=== PATIENT | female | born 1975 | race Caucasian/White ===

== ENCOUNTER 2025-03-20 14:00 | Outpatient (RCR) | payer MEDICAID, SELFPAY ==
[2025-03-13 13:42] VITALS: BP 131/83; PULSE 82; RESP 18; TEMP 36.4; BMI 22.6
--- NOTE | 2025-03-13 14:19 | PCM.WC.HP ---
History of Present Illness Date of Service: 03/13/25 Chief Complaint: R BKA site wound History of Wound: Tri Brennan is a 49 y/o female who presents today for evaluation and management of a R BKA site wound. She has medical history significant for HTN, HLD, s/p renal transplant (x4, reportedly), CAD s/p PCI on prasugrel + ASA, diabetes. Her anti-rejection medications for her renal transplant include Cellcept, prednisone, and another infusion medication that she receives every 28 days. 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 She presented to the ER (seems all [facility] [place] per referral documentation) with BKA site dehiscence on 02/03/25 after a fall onto her stump; she underwent operative debridement at that time followed by wound vac application. According to the patient, once she was home and C applying vac, it never maintained a good seal. She presented back to ER with BKA site infection 02/18/25 and underwent an additional debridement and was referred here for ongoing management at discharge on 02/25/25. She has been doing wet-to-dry dressings with saline since then. She is performing her own wound care, states she is managing this fine on her own. She reports she has a few days left on a course of Cipro + Linezolid, reports she had MRSA. She states that she does not have a stump protector. She states that she has a stump junior java developer. With her description, I cannot tell exactly what it is (knee immobilizer vs compression vs protector). Whatever she has, she got through [employer]. [facility] Home Medications ?Medication ?Instructions ?Recorded ?Last Taken ?Type amlodipine 5 mg tablet 5 mg PO BID 03/13/25 Unknown History aspirin 81 mg chewable tablet 1 tab PO DAILY 03/13/25 Unknown History belatacept 250 mg intravenous mg IV 03/13/25 Unknown History solution (Nulojix) blood sugar diagnostic (True 03/13/25 Unknown History Metrix Glucose Test Strip) ciprofloxacin HCl 500 mg tablet 500 mg PO BID 03/13/25 Unknown History furosemide 20 mg tablet 20 mg PO DAILY PRN swelling 03/13/25 Unknown History gabapentin 100 mg capsule 200 mg PO TID 03/13/25 Unknown History insulin glargine 100 unit/mL (3 unit subcut 03/13/25 Unknown History mL) subcutaneous pen (Lantus Solostar U-100 Insulin) isosorbide mononitrate 30 mg 30 mg PO DAILY 03/13/25 Unknown History tablet,extended release 24 hr lancets 33 gauge (TRUEplus Lancets) 03/13/25 Unknown History linezolid 600 mg tablet 600 mg PO BID 03/13/25 Unknown History methocarbamol 500 mg tablet 500 mg PO TID 03/13/25 Unknown History metoprolol succinate 25 mg 25 mg PO QHS 03/13/25 Unknown History tablet,extended release 24 hr metoprolol succinate 50 mg 150 mg PO DAILY 03/13/25 Unknown History tablet,extended release 24 hr mycophenolate mofetil 250 mg 250 mg PO BID 03/13/25 Unknown History capsule nitrofurantoin 1 cap PO DAILY 03/13/25 Unknown History monohydrate/macrocrystals 100 mg capsule oxycodone 15 mg tablet 15 mg PO Q4H PRN PRN chronic pain 03/13/25 Unknown History polyethylene glycol 3350 17 17 PO DAILY 03/13/25 Unknown History gram/dose oral powder prednisone 5 mg tablet 5 mg PO 03/13/25 Unknown History spironolactone 25 mg tablet 25 mg PO BID 03/13/25 Unknown History Allergy/AdvReac Type Severity Reaction Status Date / Time Opioids - Morphine Analogues Allergy behavor Verified 03/13/25 13:40 Serotonin 5HT-3 Antagonists Allergy Other Verified 03/13/25 13:40 vancomycin Allergy Rash Verified 03/13/25 13:40 Social History Smoking Status: Never smoker Vital Signs Vital Signs Vital Signs: 03/13/25 13:42 Temperature 97.5 F L Temperature Source Temporal Pulse Rate 82 Respiratory Rate 18 Blood Pressure 131/83 H Blood Pressure Mean 99 Blood Pressure Source Monitor Blood Pressure Position Sitting Blood Pressure Location Left Arm Oxygen Delivery Method Room Air Weight Weight: 116 lb Body Mass Index (BMI) 22.6 Physical Exam Const alert, oriented x3, no apparent distress and average body habitus General Appearance: cooperative and comfortable HEENT normocephalic, head/scalp atraumatic, hearing grossly normal bilaterally and external ears normal Nose: external nose normal External Ear: external ears normal Teeth and Gingiva: poor dentition Eyes General Eye: normal appearance of both eyes Resp normal respiratory effort, normal air movement, no retractions and no use of accessory muscles Effort and Inspection: able to speak in complete sentences Extremity Extremity Narrative: RLE with BKA, wound as described below. LLE with TMA vs lisfranc amputation Bilat upper extremities with multiple partially amputated fingers bilaterally Skin Wounds: wounds noted Wound Narrative: R BKA stump dehiscence; no visible bone, exposed muscle flap. The wound base is largely granular, pink, bleeds well with debridement. There are no apparent tunnels. There is no significant drainage or foul odor. There is no surrounding erythema or excess warmth. Neuro oriented x3 and moves all extremities Speech: speech normal Psych cooperative Attitude: engaged Activity / Motor Behavior: appropriate eye contact Speech: normal speech Debridement Note Debridement Note Wound debrided: R BKA stump Laterality: Right Wound Grade/Stage: to the depth of muscle Depth: to muscle Percentage of wound debrided: 100 Instrument Used: 7mm curette Tissue Removed: bioburden/slough, nonviable tissue Severity: Fat Layer Exposed (muscle exposed without necrosis) Amount of bleeding with debridement: Mild Bleeding Controlled with: Pressure Patient tolerated procedure: Patient tolerated procedure well Post-Debridement Measurements and Additional Note: Post-Debridement Measurements/Treatment - Nurse 1 - General Ulcer Assessment Start: 03/13/25 13:33 Freq: Status: Active Protocol: DORIS Activity Type Activity Date Activity User E-sign Co-sign Detail Recorded Client Recorded Date Recorded By Document 03/13/25 13:42 [email or web address] [id number] 03/13/25 13:48 KW 03/13/25 13:42 - Today's Visit Information Type of service Initial Visit Arrival Mode Wheelchair Patient Identification Verified (Name & Yes ) Height and Weight Height 5 ft Weight 116 lb Weight in Pounds 116.0 lbs Weight Measurement Method Estimated by Patient Body Mass Index (BMI) 22.6 BMI Classification Normal Vital Signs Temperature (97.8 F-99.1 F) 97.5 F L Temperature Source Temporal Pulse Rate (60-100) 82 Pulse Location Monitor Respiratory Rate (12-18) 18 Respiratory rate source Observation Oxygen Delivery Method Room Air Blood Pressure (90/60-120/80) 131/83 H Blood Pressure Mean 99 Source Monitor Position Sitting Blood Pressure Location Left Arm History Since Last Visit- (Skip if this is Patient's initial visit) Left Footwear No Footwear Right Footwear No Footwear Pain Scale: 0-10 Numeric Is Patient Pain Free? No rt stump -Description Sharp,Burning -Alleviating Factors/Interventions Medication, Medicate when due Communication Assessment Preferred language Portuguese Executive Steward Required No Able to Read Yes Able to Write Yes Communication Tools None Caregiver Communication Skills No Impairment Impairment Right Hearing Abillity Normal Left Hearing Abillity Normal Visual Assistive Devices Glasses Teaching Assessment Preferences Verbal,Written, Demonstration Barriers to Learning None Readiness To Learn Excellent Willingness to Engage in Self Management High Activies Readiness to Engage in Self Management High Activities Anxiety Level Calm Cooperation Cooperative Perception Coherent Interest in Health Problem Asks Questions Education Importance Acknowledges Need Does Patient Smoke tobacco or other No substances Smoking Status Never smoker Is Patient Diabetic Yes Functional Assessment Recent Decline in Ability to Perform Denies Any Declines Culture/Episcopalian/Senior Front End Developer Cultural/Episcopalian Needs that may affect No Treatment Plan Would you allow our [facility] to No meet you for the purpose of spiritual/ emotional support? Senior Front End Developer to contact place of religion No WC - Nurse 1 - General Ulcer Measurement Start: 03/13/25 13:33 Freq: Status: Active Protocol: Activity Type Activity Date Activity User E-sign Co-sign Detail Recorded Client Recorded Date Recorded By Document 03/13/25 13:42 [id number] 03/13/25 13:48 KW 03/13/25 13:42 Wound Center Nurse 1 #1 RT STUMP -Current Size (cm) - Length 8.3 -Current Size (cm) - Width 13.5 -Current Size (cm) - Depth 0.2 -Total Square Cm 112.05 -Date of Last Picture (Recall this 03/13/25 field) -Exudate Amt Large -Exudate Type Serosanguineous -Wound Margin Distinct, Outline Attached -Granulation Amt Large (67-100%) -Granulation Quality Red -Texture (Tabitha-wound Skin Appearance) Assessed -Moisture (Tabitha-wound Skin Appearance) Assessed -Color (Tabitha-wound Skin Appearance) Assessed -Temperature (Tabitha-wound Skin No Abnormality Appearance) (Pt Warm) -Tenderness on Palpation (Tabitha-wound No Skin Appearance) -Ulcer Cleansing Soap and Water -Foul Odor after Cleansing No -Anesthetic Used 4% Lidocaine Solution WC - Nurse 2 - General Ulcer CM Notes Start: 03/13/25 13:33 Freq: Status: Active Protocol: Activity Type Activity Date Activity User E-sign Co-sign Detail Recorded Client Recorded Date Recorded By Document 03/13/25 13:59 [id number] 03/13/25 14:12 03/13/25 13:59 Wound Center Nurse 2 -Time 14:00 -Correct Patient Yes -Correct Side, Site, Position Yes -Correct Procedure Yes -Procedure Performed Yes -Type of Procedure Debridement -Clinical Debridement Muscle / Fascia -Tissue Removed Muscle -Post Debridement (cm) - Length 8.7 -Post Debridement (cm) - Width 13.5 -Post Debridement (cm) - Depth 0.9 -Total Square (Post) (cm) 117.45 -Area of Debridement (cm) - Length 8.7 -Area of Debridement (cm) - Width 13.5 -Total Square (Area) (cm) 117.45 -Tunneling No -Undermining/Tunneling No -Circular Undermining No -Wound/Ulcer Outcome Not Healed -Ulcer Cleansing Rinsed/ Irrigated with Saline -Foul Odor after Cleansing No -Bioengineered Tissue No -Bleeding Controlled with Pressure -Treatment Response Procedure Tolerated Well -Offloading No -Debridement - Muscle / Fascia, 1st Yes 20sq cm -Debridement, Muscle/Fascia, ea addt'l 5 20sq cm or part thereof Pain Scale: 0-10 Numeric Is Patient Pain Free? Yes Charges/Coding Visit Charges Office Visits / Consults: 44655 OV L3 New 30min Procedures Integumentary 111xxx-113xx: [id number] Ara musc/fascia 20 sq cm/< (total area: 117.45 sqcm) Add On Codes: 31414 Ara musc/fascia add-on (total area debrided 117.45 sqcm) Assessment/Plan Assessment/Plan (1) Dehiscence of amputation stump: CODE(S): T87.81 - Dehiscence of amputation stump PLAN: Dehiscence of R BK amputation stump with associated wound (2) Below-knee amputation of right lower extremity: CODE(S): S88.111A - Complete traumatic amputation at level between knee and ankle, right lower leg, initial encounter (3) Diabetes: CODE(S): E11.9 - Type 2 diabetes mellitus without complications (4) Immunosuppressed status: CODE(S): D84.9 - Immunodeficiency, unspecified PLAN: Plan She has large open wound of the R BKA site secondary to dehiscence. There are no signs of infection on exam today. The wound has exposed muscle with good granulation tissue throughout the base, there is no exposed bone. For wound care: (1) Wash the area with soap and water, pat to dry (2) Apply dakins-soaked gauze to the wound bed for wet-to-dry dressing (3) wrap with Kerlix (4) wrap with LATOYA for compression (5) change daily If she does not have one, I think it would be very beneficial for her to have a stump protector to reduce risk for further injury to the area particularly as she is residing at home. I will contact Kp to coordinate. Plan for return to the office in 1 week, sooner as needed.
--- NOTE | 2025-03-14 12:22 | WC ---
PHOTO 03/13/25 RIGHT STUMP
[2025-03-20 14:53] VITALS: BP 141/74; PULSE 87; RESP 18; TEMP 36.1; BMI 22.6
--- NOTE | 2025-03-20 15:18 | PCM.WC.PN ---
History of Present Illness Date of Service: 03/20/25 Chief Complaint: R BKA site wound History of Wound: Tri Brennan is a 49 y/o female who presents today for evaluation and management of a R BKA site wound. She has medical history significant for HTN, HLD, s/p renal transplant (x4, reportedly), CAD s/p PCI on prasugrel + ASA, diabetes. Her anti-rejection medications for her renal transplant include Cellcept, prednisone, and another infusion medication that she receives every 28 days. 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 She presented to the ER (seems all [facility] [place] per referral documentation) with BKA site dehiscence on 02/03/25 after a fall onto her stump; she underwent operative debridement at that time followed by wound vac application. According to the patient, once she was home and C applying vac, it never maintained a good seal. She presented back to ER with BKA site infection 02/18/25 and underwent an additional debridement and was referred here for ongoing management at discharge on 02/25/25. She has been doing wet-to-dry dressings with saline since then. She is performing her own wound care, states she is managing this fine on her own. She reports she has a few days left on a course of Cipro + Linezolid, reports she had MRSA. She states that she does not have a stump protector. She states that she has a stump anodizer. With her description, I cannot tell exactly what it is (knee immobilizer vs compression vs protector). Whatever she has, she got through [employer]. Subjective Subjective She has done well with wound care this past week, appears to be adhering to our wound care instructions. She feels she has noticed significant improvement in wound size. She has not had any increased erythema, swelling, drainage, foul odor, or pain. She denies constitutional symptoms. She did not receive the ordered supplies, apparently there was an issue with a misprint of one of her insurance numbers; she states she is supposed to receive then early next week. Objective Data Objective Data Vital Signs: Vital Signs Temp Pulse Resp BP O2 Del Method 97 F L 87 18 141/74 H Room Air 03/20/25 14:53 03/20/25 14:53 03/20/25 14:53 03/20/25 14:53 03/13/25 13:42 Oxygen Delivery Method Room Air Weight: 116 lb Body Mass Index (BMI) 22.6 Charges/Coding Visit Charges Office Visits / Consults: 02575 OV L3 New 30min Physical Exam Const alert, oriented x3, no apparent distress and average body habitus General Appearance: cooperative and comfortable HEENT normocephalic, head/scalp atraumatic, hearing grossly normal bilaterally and external ears normal Nose: external nose normal External Ear: external ears normal Teeth and Gingiva: poor dentition Eyes General Eye: normal appearance of both eyes Resp normal respiratory effort, normal air movement, no retractions and no use of accessory muscles Effort and Inspection: able to speak in complete sentences Extremity Extremity Narrative: RLE with BKA, wound as described below. LLE with TMA vs lisfranc amputation Bilat upper extremities with multiple partially amputated fingers bilaterally Skin Wounds: wounds noted Wound Narrative: R BKA stump dehiscence; no visible bone, exposed muscle flap. The wound base this week is beefy red without any significant slough or devitalized tissue. There are no apparent tunnels. There is no significant drainage or foul odor. There is no surrounding erythema or excess warmth. Neuro oriented x3 and moves all extremities Speech: speech normal Psych cooperative Attitude: engaged Activity / Motor Behavior: appropriate eye contact Speech: normal speech Debridement Note Debridement Note No debridement was completed: No debridement was completed today Post-Debridement Measurements and Additional Note: Post-Debridement Measurements/Treatment - Nurse 1 - General Ulcer Assessment Start: 03/13/25 13:33 Freq: Status: Active Protocol: RANDELL.HILTON Activity Type Activity Date Activity User E-sign Co-sign Detail Recorded Client Recorded Date Recorded By Document 03/13/25 13:42 KW [id number] 03/13/25 13:48 KW Document 03/20/25 14:53 AL [id number] 03/20/25 14:59 AL 03/13/25 03/20/25 13:42 14:53 - Today's Visit Information Type of service Initial Visit Follow-up Visit (Physician/CUSTODIAL WORKER ) Arrival Mode Wheelchair Ambulatory, Wheelchair Accompanied by self Patient Identification Verified (Name & Yes Yes ) Safety Precautions Fall Prevention Height and Weight Height 5 ft Weight 116 lb Weight in Pounds 116.0 lbs Weight Measurement Method Estimated by Patient Body Mass Index (BMI) 22.6 22.6 BMI Classification Normal Normal Vital Signs Temperature (97.8 F-99.1 F) 97.5 F L 97 F L Temperature Source Temporal Temporal Pulse Rate (60-100) 82 87 Pulse Location Monitor Monitor Respiratory Rate (12-18) 18 18 Respiratory rate source Observation Observation Oxygen Delivery Method Room Air Blood Pressure (90/60-120/80) 131/83 H 141/74 H Blood Pressure Mean (mm Hg) 99 96 Source Monitor Monitor Position Sitting Sitting Blood Pressure Location Left Arm Left Arm History Since Last Visit- (Skip if this is Patient's initial visit) Has dressing in place as prescribed Yes Has compression in place as prescribed Yes Has offloadiing in place as prescribed Yes Experienced any changes in pain level or Yes management Left Footwear No Footwear Regular Shoe Right Footwear No Footwear Regular Shoe Pain Scale: 0-10 Numeric Is Patient Pain Free? No Yes rt stump -Description Sharp,Burning -Alleviating Factors/Interventions Medication, Medicate when due Communication Assessment Preferred language Maltese Confectionery Maker Required No Able to Read Yes Able to Write Yes Communication Tools None Caregiver Communication Skills No Impairment Impairment Right Hearing Abillity Normal Left Hearing Abillity Normal Visual Assistive Devices Glasses Teaching Assessment Preferences Verbal,Written, Demonstration Barriers to Learning None Readiness To Learn Excellent Willingness to Engage in Self Management High Activies Readiness to Engage in Self Management High Activities Anxiety Level Calm Cooperation Cooperative Perception Coherent Interest in Health Problem Asks Questions Education Importance Acknowledges Need Does Patient Smoke tobacco or other No substances Smoking Status Never smoker Is Patient Diabetic Yes Functional Assessment Recent Decline in Ability to Perform Denies Any Declines Culture/Mandaeism/E Merchant Cultural/Mandaeism Needs that may affect No Treatment Plan Would you allow our hospital litigation attorney associate to No meet you for the purpose of spiritual/ emotional support? E Merchant to contact place of adventism No WC - Nurse 1 - General Ulcer Measurement Start: 03/13/25 13:33 Freq: Status: Active Protocol: Activity Type Activity Date Activity User E-sign Co-sign Detail Recorded Client Recorded Date Recorded By Document 03/13/25 13:42 KW [id number] 03/13/25 13:48 KW Document 03/20/25 14:53 MT [id number] 03/20/25 14:59 MT 03/13/25 03/20/25 13:42 14:53 Wound Center Nurse 1 #1 RT STUMP -Current Size (cm) - Length 8.3 7 -Current Size (cm) - Width 13.5 10.5 -Current Size (cm) - Depth 0.2 0.2 -Total Square Cm 112.05 73.5 -Date of Last Picture (Recall this 03/13/25 field) -Photo Taken No -Tunneling No -Undermining/Tunneling No -Circular Undermining No -Exudate Amt Large Medium -Exudate Type Serosanguineous Serosanguineous -Wound Margin Distinct, Flat & Intact Outline Attached -Granulation Amt Large (67-100%) Large (67-100%) -Granulation Quality Red Red -Slough/Fibrin No -Necrosis Amt None Present (0 %) -Texture (Tabitha-wound Skin Appearance) Assessed Assessed -Moisture (Tabitha-wound Skin Appearance) Assessed Assessed, Maceration -Color (Tabitha-wound Skin Appearance) Assessed Assessed, Erythema -Temperature (Tabitha-wound Skin No Abnormality No Abnormality Appearance) (Pt Warm) (Pt Warm) -Tenderness on Palpation (Tabitha-wound No No Skin Appearance) -Ulcer Cleansing Soap and Water Soap and Water -Foul Odor after Cleansing No No -Anesthetic Used 4% Lidocaine 4% Lidocaine Solution Solution Lower Limb Edema Present NA - Nurse 2 - General Ulcer CM Notes Start: 03/13/25 13:33 Freq: Status: Active Protocol: Activity Type Activity Date Activity User E-sign Co-sign Detail Recorded Client Recorded Date Recorded By Document 03/13/25 13:59 [id number] 03/13/25 14:12 Document 03/20/25 15:11 [id number] 03/20/25 15:13 03/13/25 03/20/25 13:59 15:11 Wound Center Nurse 2 #1 RT STUMP -Time 14:00 15:11 -Correct Patient Yes Yes -Correct Side, Site, Position Yes Yes -Correct Procedure Yes No -Procedure Performed Yes No -Type of Procedure Debridement -Clinical Debridement Muscle / Fascia -Tissue Removed Muscle -Post Debridement (cm) - Length 8.7 7.2 -Post Debridement (cm) - Width 13.5 10.5 -Post Debridement (cm) - Depth 0.9 0.5 -Total Square (Post) (cm) 117.45 75.60 -Area of Debridement (cm) - Length 8.7 -Area of Debridement (cm) - Width 13.5 -Total Square (Area) (cm) 117.45 -Tunneling No No -Undermining/Tunneling No No -Circular Undermining No No -Wound/Ulcer Outcome Not Healed Not Healed -Ulcer Cleansing Rinsed/ Irrigated with Saline -Foul Odor after Cleansing No No -Bioengineered Tissue No No -Bleeding Controlled with Pressure NA -Treatment Response Procedure Tolerated Well -Offloading No No -Debridement - Muscle / Fascia, 1st Yes 20sq cm -Debridement, Muscle/Fascia, ea addt'l 5 20sq cm or part thereof Pain Scale: 0-10 Numeric Is Patient Pain Free? Yes Yes Assessment/Plan Assessment/Plan (1) Dehiscence of amputation stump: CODE(S): T87.81 - Dehiscence of amputation stump PLAN: Dehiscence of R BK amputation stump with associated wound (2) Below-knee amputation of right lower extremity: CODE(S): S88.111A - Complete traumatic amputation at level between knee and ankle, right lower leg, initial encounter (3) Diabetes: CODE(S): E11.9 - Type 2 diabetes mellitus without complications (4) Immunosuppressed status: CODE(S): D84.9 - Immunodeficiency, unspecified PLAN: Plan She has large open wound of the R BKA site secondary to dehiscence. There are no signs of infection on exam today. The wound has exposed muscle with beefy red granulation tissue throughout the base, there is no exposed bone. There was no significant slough or devitalized tissue so did not perform any debridement today. For wound care: (1) Wash the area with soap and water, pat to dry (2) Apply dakins-soaked gauze to the wound bed for wet-to-dry dressing (3) wrap with Kerlix (4) wrap with LATOYA for compression (5) change daily Will continue with LATOYA wrap for compression. I will follow-up on my email with Kp regarding getting stump shrinkers for her, I have not heard back and she has not heard from them either. Plan for return to the office in 1 week, sooner as needed.
== END 2025-03-22 23:59 | disposition home or self-care (01) ==
LOC: WC 14:00
PROVIDERS: Visit Provider Physician Assistant
DX: T87.81 Dehiscence of amputation stump (principal); S88.111A Complete traumatic amputation at level between knee and ankle, right lower leg, initial encounter; Z89.511 Acquired absence of right leg below knee; E11.9 Type 2 diabetes mellitus without complications; Z79.4 Long term (current) use of insulin; E78.5 Hyperlipidemia, unspecified; Z79.891 Long term (current) use of opiate analgesic; Z79.82 Long term (current) use of aspirin; I10 Essential (primary) hypertension; I25.10 Atherosclerotic heart disease of native coronary artery without angina pectoris; D84.9 Immunodeficiency, unspecified; Z94.0 Kidney transplant status; Z95.5 Presence of coronary angioplasty implant and graft
CPT/HCPCS: 11043; 11046; 99203; 99213; G0463

== ENCOUNTER 2025-04-03 15:00 | Outpatient (RCR) | payer MEDICAID, SELFPAY ==
[2025-03-23 00:23] VITALS: BP 141/74; PULSE 87; RESP 18; TEMP 36.1; BMI 22.6
[2025-03-27 15:12] VITALS: BP 140/67; PULSE 94; RESP 18; TEMP 36.7; BMI 22.6
--- NOTE | 2025-03-27 16:23 | PCM.WC.PN ---
History of Present Illness Date of Service: 03/27/25 Chief Complaint: R BKA site wound History of Wound: Tri Brennan is a 49 y/o female who presents today for evaluation and management of a R BKA site wound. She has medical history significant for HTN, HLD, s/p renal transplant (x4, reportedly), CAD s/p PCI on prasugrel + ASA, diabetes. Her anti-rejection medications for her renal transplant include Cellcept, prednisone, and another infusion medication that she receives every 28 days. 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 She presented to the ER (seems all [facility] per referral documentation) with BKA site dehiscence on 02/03/25 after a fall onto her stump; she underwent operative debridement at that time followed by wound vac application. According to the patient, once she was home and HHC applying vac, it never maintained a good seal. She presented back to ER with BKA site infection 02/18/25 and underwent an additional debridement and was referred here for ongoing management at discharge on 02/25/25. She has been doing wet-to-dry dressings with saline since then. She is performing her own wound care, states she is managing this fine on her own. She reports she has a few days left on a course of Cipro + Linezolid, reports she had MRSA. She states that she does not have a stump protector. She states that she has a stump tack maker. With her description, I cannot tell exactly what it is (knee immobilizer vs compression vs protector). Whatever she has, she got through [employer]. Subjective Subjective She has done well with wound care this past week, appears to be adhering to our wound care instructions. She feels she has noticed significant improvement in wound size. She has not had any increased erythema, swelling, drainage, foul odor, or pain. She denies constitutional symptoms. She did receive the supplies that were ordered. Objective Data Objective Data Vital Signs: Vital Signs Temp Pulse Resp BP O2 Del Method 98.1 F 94 18 140/67 H Room Air 03/27/25 15:12 03/27/25 15:12 03/27/25 15:12 03/27/25 15:12 03/27/25 15:12 Oxygen Delivery Method Room Air Weight: 116 lb Body Mass Index (BMI) 22.6 Charges/Coding Procedures Integumentary 111xxx-113xx: 43276 Ara musc/fascia 20 sq cm/< (total area: 64 sq cm) Add On Codes: 84814 Ara musc/fascia add-on (total area debrided 64sqcm) Physical Exam Const alert, oriented x3, no apparent distress and average body habitus General Appearance: cooperative and comfortable HEENT normocephalic, head/scalp atraumatic, hearing grossly normal bilaterally and external ears normal Nose: external nose normal External Ear: external ears normal Teeth and Gingiva: poor dentition Eyes General Eye: normal appearance of both eyes Resp normal respiratory effort, normal air movement, no retractions and no use of accessory muscles Effort and Inspection: able to speak in complete sentences Extremity Extremity Narrative: RLE with BKA, wound as described below. LLE with TMA vs lisfranc amputation Bilat upper extremities with multiple partially amputated fingers bilaterally Skin Wounds: wounds noted Wound Narrative: R BKA stump dehiscence; no visible bone, exposed muscle flap. The wound base this week is beefy red with mild slough. There are no apparent tunnels. There is no significant drainage or foul odor. There is no surrounding erythema or excess warmth. Neuro oriented x3 and moves all extremities Speech: speech normal Psych cooperative Attitude: engaged Activity / Motor Behavior: appropriate eye contact Speech: normal speech Debridement Note Debridement Note Wound debrided: R BKA stump Laterality: Right Wound Grade/Stage: to the depth of muscle Depth: to muscle Percentage of wound debrided: 100 Instrument Used: 7mm curette Tissue Removed: bioburden/slough, nonviable tissue Severity: Fat Layer Exposed (muscle exposed without necrosis) Amount of bleeding with debridement: Mild Bleeding Controlled with: Pressure Patient tolerated procedure: Patient tolerated procedure well Post-Debridement Measurements and Additional Note: Post-Debridement Measurements/Treatment RANDELL - Nurse 1 - General Ulcer Assessment Start: 03/27/25 15:12 Freq: Status: Active Protocol: DORIS Activity Type Activity Date Activity User E-sign Co-sign Detail Recorded Client Recorded Date Recorded By Document 03/27/25 15:12 DL [id number] 03/27/25 15:18 DL 03/27/25 15:12 RANDELL - Today's Visit Information Type of service Follow-up Visit (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/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 ) Arrival Mode Wheelchair Transfer Assistance None Patient Identification Verified (Name & Yes ) Patient Requires Transmission-Based No Precautions Height and Weight Body Mass Index (BMI) 22.6 BMI Classification Normal Vital Signs Temperature (97.8 F-99.1 F) 98.1 F Temperature Source Temporal Pulse Rate (60-100) 94 Pulse Location Monitor Respiratory Rate (12-18) 18 Respiratory rate source Observation Oxygen Delivery Method Room Air Blood Pressure (90/60-120/80) 140/67 H Blood Pressure Mean (mm Hg) 91 Source Monitor Position Semi-Fowlers Blood Pressure Location Left Arm History Since Last Visit- (Skip if this is Patient's initial visit) Have you changed medications since your No last visit? Any new allergies or adverse reactions No Had a fall/change in ADL's that may No increase risk of falls Signs or symptoms of abuse and/or No neglect since last visit Have you been in the hospital since your No last visit? Has dressing in place as prescribed Yes Has compression in place as prescribed Yes Has offloadiing in place as prescribed N/A Experienced any changes in pain level or No management Left Footwear Regular Shoe Right Footwear No Footwear Pain Scale: 0-10 Numeric Is Patient Pain Free? Yes WC - Nurse 1 - General Ulcer Measurement Start: 03/27/25 15:12 Freq: Status: Active Protocol: Activity Type Activity Date Activity User E-sign Co-sign Detail Recorded Client Recorded Date Recorded By Document 03/27/25 15:12 DL [id number] 03/27/25 15:18 DL 03/27/25 15:12 Wound Center Nurse 1 #1 RT STUMP -Current Size (cm) - Length 5.9 -Current Size (cm) - Width 9.7 -Current Size (cm) - Depth 0.1 -Total Square Cm 57.23 -Date of Last Picture (Recall this 03/27/25 field) -Exudate Amt Medium -Exudate Type Serosanguineous -Wound Margin Distinct, Outline Attached -Granulation Amt Large (67-100%) -Granulation Quality Red -Necrosis Amt Small (1-33%) -Necrotic Tissue Type Adherent Slough -Texture (Tabitha-wound Skin Appearance) Assessed -Moisture (Tabitha-wound Skin Appearance) Assessed -Color (Tabitha-wound Skin Appearance) Assessed -Temperature (Tabitha-wound Skin No Abnormality Appearance) (Pt Warm) -Tenderness on Palpation (Tabitha-wound No Skin Appearance) -Ulcer Cleansing Soap and Water -Foul Odor after Cleansing No -Anesthetic Used 5% Lidocaine Gel RANDELL - Nurse 2 - General Ulcer CM Notes Start: 03/27/25 15:12 Freq: Status: Active Protocol: Activity Type Activity Date Activity User E-sign Co-sign Detail Recorded Client Recorded Date Recorded By Document 03/27/25 15:35 GM [id number] 03/27/25 15:40 03/27/25 15:35 Wound Center Nurse 2 -Time 15:35 -Correct Patient Yes -Correct Side, Site, Position Yes -Correct Procedure Yes -Procedure Performed Yes -Type of Procedure Debridement -Clinical Debridement Subcutaneous -Tissue Removed Subcutaneous -Post Debridement (cm) - Length 6.4 -Post Debridement (cm) - Width 10.0 -Post Debridement (cm) - Depth 0.5 -Total Square (Post) (cm) 64.00 -Area of Debridement (cm) - Length 6.4 -Area of Debridement (cm) - Width 10.0 -Total Square (Area) (cm) 64.00 -Tunneling No -Undermining/Tunneling No -Circular Undermining No -Wound/Ulcer Outcome Not Healed -Ulcer Cleansing Rinsed/ Irrigated with Saline -Foul Odor after Cleansing No -Bioengineered Tissue No -Bleeding Controlled with Pressure -Treatment Response Procedure Tolerated Well -Offloading No -Debridement - Subq, 1st 20sq cm Yes -Debridement, SubQ, ea addt'l 20sq cm 3 or part thereof Pain Scale: 0-10 Numeric Is Patient Pain Free? Yes - Nurse 3 - General Ulcer D/C NN Start: 03/27/25 15:12 Freq: Status: Active Protocol: Activity Type Activity Date Activity User E-sign Co-sign Detail Recorded Client Recorded Date Recorded By Document 03/27/25 15:45 DL [id number] 03/27/25 15:47 DL 03/27/25 15:45 Wound Care Center Nurse 3 #1 RT STUMP -Ulcer Cleansing Rinsed/ Irrigated with Saline -Foul Odor after Cleansing No -Primary Dressing Applied Hysept -Other Dressing dakins wet to dry -Primary Dressing Covered/Secured with Dry Gauze & Roll Gauze, Secured with Tape -Other Covering ABD -Hysept 1 -Wound Comment(s) Dressing applied per Devaughn Mathis today. RLE -Compression Wrap Bin Wrap Treatment Response Procedure Tolerated Well Pain Scale: 0-10 Numeric Is Patient Pain Free? Yes WC - Visit Discharge Discharge Condition Stable Ambulatory Status Wheelchair Transportation Private Auto Assessment/Plan Assessment/Plan (1) Dehiscence of amputation stump: CODE(S): T87.81 - Dehiscence of amputation stump PLAN: Dehiscence of R BK amputation stump with associated wound (2) Below-knee amputation of right lower extremity: CODE(S): S88.111A - Complete traumatic amputation at level between knee and ankle, right lower leg, initial encounter (3) Diabetes: CODE(S): E11.9 - Type 2 diabetes mellitus without complications (4) Immunosuppressed status: CODE(S): D84.9 - Immunodeficiency, unspecified PLAN: Plan She has large open wound of the R BKA site secondary to dehiscence. There are no signs of infection on exam today. The wound has exposed muscle with beefy red granulation tissue throughout the base, there is no exposed bone. I performed sharp debridement today which she tolerated well. For wound care: (1) Wash the area with soap and water, pat to dry (2) Apply dakins-soaked gauze to the wound bed for wet-to-dry dressing (3) wrap with Kerlix (4) wrap with BIN for compression (5) change daily Will continue with BIN wrap for compression. Plan for return to the office in 1 week, sooner as needed.
--- NOTE | 2025-03-28 08:44 | WC ---
PHOTO 03/27/25 RIGHT STUMP
[2025-04-03 15:16] VITALS: BP 136/70; PULSE 91; RESP 18; TEMP 36.6; BMI 22.6
--- NOTE | 2025-04-03 15:37 | PCM.WC.PN ---
History of Present Illness Date of Service: 04/03/25 Chief Complaint: R BKA site wound History of Wound: Tri Brennan is a 49 y/o female who presents today for evaluation and management of a R BKA site wound. She has medical history significant for HTN, HLD, s/p renal transplant (x4, reportedly), CAD s/p PCI on prasugrel + ASA, diabetes. Her anti-rejection medications for her renal transplant include Cellcept, prednisone, and another infusion medication that she receives every 28 days. 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 She presented to the ER (seems all [facility] per referral documentation) with BKA site dehiscence on 02/03/25 after a fall onto her stump; she underwent operative debridement at that time followed by wound vac application. According to the patient, once she was home and C applying vac, it never maintained a good seal. She presented back to ER with BKA site infection 02/18/25 and underwent an additional debridement and was referred here for ongoing management at discharge on 02/25/25. She has been doing wet-to-dry dressings with saline since then. She is performing her own wound care, states she is managing this fine on her own. She reports she has a few days left on a course of Cipro + Linezolid, reports she had MRSA. She states that she does not have a stump protector. 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 With her description, I cannot tell exactly what it is (knee immobilizer vs compression vs protector). Whatever she has, she got through [employer]. Subjective Subjective She has done well with wound care this past week, appears to be adhering to our wound care instructions. She continues to note significant improvement in wound size. She has not had any increased erythema, swelling, drainage, foul odor, or pain around the wound. She denies constitutional symptoms. She has developed increased LLE edema and reports pain as well. She also feels that this leg looks slightly more discolored/prominent appearance of veins and is more warm to touch. She is on Effient by report but no anticoagulants. She states she remains as active as can but of course ambulation is quite limited given her inability to use a prosthesis at this time. Objective Data Objective Data Vital Signs: Vital Signs Temp Pulse Resp BP O2 Del Method 97.8 F 91 18 136/70 H Room Air 04/03/25 15:16 04/03/25 15:16 04/03/25 15:16 04/03/25 15:16 04/03/25 15:16 Oxygen Delivery Method Room Air Weight: 116 lb Body Mass Index (BMI) 22.6 Charges/Coding Visit Charges Office Visits / Consults: 03194 OV L3 Est 20min Physical Exam Const alert, oriented x3, no apparent distress and average body habitus General Appearance: cooperative and comfortable HEENT normocephalic, head/scalp atraumatic, hearing grossly normal bilaterally and external ears normal Nose: external nose normal External Ear: external ears normal Teeth and Gingiva: poor dentition Eyes General Eye: normal appearance of both eyes Resp normal respiratory effort, normal air movement, no retractions and no use of accessory muscles Effort and Inspection: able to speak in complete sentences Extremity Extremity Narrative: RLE with BKA, wound as described below. LLE with TMA vs lisfranc amputation Bilat upper extremities with multiple partially amputated fingers bilaterally Skin Wounds: wounds noted Wound Narrative: R BKA stump dehiscence; no visible bone, exposed muscle flap. The wound base this week is beefy red with mild slough. There are no apparent tunnels. There is no significant drainage or foul odor. There is no surrounding erythema or excess warmth. It continues to decrease in size. Neuro oriented x3 and moves all extremities Speech: speech normal Psych cooperative Attitude: engaged Activity / Motor Behavior: appropriate eye contact Speech: normal speech Debridement Note Debridement Note Post-Debridement Measurements and Additional Note: Post-Debridement Measurements/Treatment - Nurse 1 - General Ulcer Assessment Start: 03/27/25 15:12 Freq: Status: Active Protocol: [email or web address].HILTON Activity Type Activity Date Activity User E-sign Co-sign Detail Recorded Client Recorded Date Recorded By Document 03/27/25 15:12 DL [id number] 03/27/25 15:18 DL Document 04/03/25 15:16 KW [id number] 04/03/25 15:23 KW 03/27/25 04/03/25 15:12 15:16 - Today's Visit Information Type of service Follow-up Visit Initial Visit (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/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 ) Arrival Mode Wheelchair Wheelchair Transfer Assistance None Patient Identification Verified (Name & Yes Yes ) Patient Requires Transmission-Based No Precautions Height and Weight Body Mass Index (BMI) 22.6 22.6 BMI Classification Normal Normal Vital Signs Temperature (97.8 F-99.1 F) 98.1 F 97.8 F Temperature Source Temporal Temporal Pulse Rate (60-100) 94 91 Pulse Location Monitor Monitor Respiratory Rate (12-18) 18 18 Respiratory rate source Observation Observation Oxygen Delivery Method Room Air Room Air Blood Pressure (90/60-120/80) 140/67 H 136/70 H Blood Pressure Mean (mm Hg) 91 92 Source Monitor Monitor Position Semi-Fowlers Standing Blood Pressure Location Left Arm Right Arm History Since Last Visit- (Skip if this is Patient's initial visit) Have you changed medications since your No No last visit? Any new allergies or adverse reactions No No Had a fall/change in ADL's that may No No increase risk of falls Signs or symptoms of abuse and/or No No neglect since last visit Have you been in the hospital since your No No last visit? Has dressing in place as prescribed Yes Yes Has compression in place as prescribed Yes Yes Has offloadiing in place as prescribed N/A N/A Experienced any changes in pain level or No No management Left Footwear Regular Shoe Regular Shoe Right Footwear No Footwear No Footwear Pain Scale: 0-10 Numeric Is Patient Pain Free? Yes Yes WC - Nurse 1 - General Ulcer Measurement Start: 03/27/25 15:12 Freq: Status: Active Protocol: Activity Type Activity Date Activity User E-sign Co-sign Detail Recorded Client Recorded Date Recorded By Document 03/27/25 15:12 DL [id number] 03/27/25 15:18 DL Document 04/03/25 15:16 KW [id number] 04/03/25 15:23 KW 03/27/25 04/03/25 15:12 15:16 Wound Center Nurse 1 #1 RT STUMP -Current Size (cm) - Length 5.9 6 -Current Size (cm) - Width 9.7 7 -Current Size (cm) - Depth 0.1 0.2 -Total Square Cm 57.23 42 -Date of Last Picture (Recall this 03/27/25 04/03/25 field) -Exudate Amt Medium Medium -Exudate Type Serosanguineous Serosanguineous -Wound Margin Distinct, Thickened Outline Attached -Granulation Amt Large (67-100%) Large (67-100%) -Granulation Quality Red Red -Necrosis Amt Small (1-33%) None Present (0 %) -Necrotic Tissue Type Adherent Slough -Texture (Tabitha-wound Skin Appearance) Assessed Assessed -Moisture (Tabitha-wound Skin Appearance) Assessed Assessed -Color (Tabitha-wound Skin Appearance) Assessed Assessed -Temperature (Tabitha-wound Skin No Abnormality Appearance) (Pt Warm) -Tenderness on Palpation (Tabitha-wound No No Skin Appearance) -Ulcer Cleansing Soap and Water Soap and Water -Foul Odor after Cleansing No -Anesthetic Used 5% Lidocaine 5% Lidocaine Gel Gel Left Calf (cm) 37.5 Left Ankle (cm) 23.5 WC - Nurse 2 - General Ulcer CM Notes Start: 03/27/25 15:12 Freq: Status: Active Protocol: Activity Type Activity Date Activity User E-sign Co-sign Detail Recorded Client Recorded Date Recorded By Document 03/27/25 15:35 GM [id number] 03/27/25 15:40 GM Document 04/03/25 15:27 GM [id number] 04/03/25 15:29 GM Edit Result 04/03/25 15:27 GM (1) [id number] 04/03/25 15:31 GM (1) #1 RT STUMP - Post Debridement (cm) - Length => 5.9 - Post Debridement (cm) - Width => 8.7 - Post Debridement (cm) - Depth => 0.5 - Total Square (Post) (cm) => 51.33 03/27/25 04/03/25 15:35 15:27 Wound Center Nurse 2 #1 RT STUMP -Time 15:35 15:27 -Correct Patient Yes Yes -Correct Side, Site, Position Yes Yes -Correct Procedure Yes No -Procedure Performed Yes No -Type of Procedure Debridement -Clinical Debridement Subcutaneous -Tissue Removed Subcutaneous -Post Debridement (cm) - Length 6.4 5.9 -Post Debridement (cm) - Width 10.0 8.7 -Post Debridement (cm) - Depth 0.5 0.5 -Total Square (Post) (cm) 64.00 51.33 -Area of Debridement (cm) - Length 6.4 -Area of Debridement (cm) - Width 10.0 -Total Square (Area) (cm) 64.00 -Tunneling No No -Undermining/Tunneling No No -Circular Undermining No No -Wound/Ulcer Outcome Not Healed Not Healed -Ulcer Cleansing Rinsed/ Irrigated with Saline -Foul Odor after Cleansing No No -Bioengineered Tissue No No -Bleeding Controlled with Pressure NA -Treatment Response Procedure Tolerated Well -Offloading No No -Debridement - Subq, 1st 20sq cm Yes -Debridement, SubQ, ea addt'l 20sq cm 3 or part thereof Pain Scale: 0-10 Numeric Is Patient Pain Free? Yes Yes - Nurse 3 - General Ulcer D/C NN Start: 03/27/25 15:12 Freq: Status: Active Protocol: Activity Type Activity Date Activity User E-sign Co-sign Detail Recorded Client Recorded Date Recorded By Document 03/27/25 15:45 DL [id number] 03/27/25 15:47 DL 03/27/25 15:45 Wound Care Center Nurse 3 #1 RT STUMP -Ulcer Cleansing Rinsed/ Irrigated with Saline -Foul Odor after Cleansing No -Primary Dressing Applied Hysept -Other Dressing dakins wet to dry -Primary Dressing Covered/Secured with Dry Gauze & Roll Gauze, Secured with Tape -Other Covering ABD -Hysept 1 -Wound Comment(s) Dressing applied per Devaughn Mathis today. RLE -Compression Wrap Bin Wrap Treatment Response Procedure Tolerated Well Pain Scale: 0-10 Numeric Is Patient Pain Free? Yes - Visit Discharge Discharge Condition Stable Ambulatory Status Wheelchair Transportation Private Auto Assessment/Plan Assessment/Plan (1) Dehiscence of amputation stump: CODE(S): T87.81 - Dehiscence of amputation stump PLAN: Dehiscence of R BK amputation stump with associated wound (2) Below-knee amputation of right lower extremity: CODE(S): S88.111A - Complete traumatic amputation at level between knee and ankle, right lower leg, initial encounter (3) Diabetes: CODE(S): E11.9 - Type 2 diabetes mellitus without complications (4) Immunosuppressed status: CODE(S): D84.9 - Immunodeficiency, unspecified PLAN: Plan She has large open wound of the R BKA site secondary to dehiscence. There are no signs of infection on exam today. The wound has exposed muscle with beefy red granulation tissue throughout the base, there is no exposed bone. No debridement was necessary today. For wound care: (1) Wash the area with soap and water, pat to dry (2) Apply dakins-soaked gauze to the wound bed for wet-to-dry dressing (3) wrap with Kerlix (4) wrap with BIN for compression (5) change daily Will continue with BIN wrap for compression to the R BKA stump. Due to her acute LLE swelling and pain I advise stat venous duplex to rule out DVT. Patient also had concern for infection so CBC was ordered as well though did not appreciate any erythema/appearance of cellulitis on exam. She declined to have these done at [facility] and requested they be sent to [facility], orders were faxed to [facility]. She is advised to proceed to the ER should these symptoms worsen or she develop CP, SOB, fevers, chills, or other concerning symptoms. Plan for return to the office in 1 week, sooner as needed.
--- NOTE | 2025-04-04 08:45 | WC ---
PHOTO 04/03/25 RIGHT STUMP
== END 2025-04-21 23:59 | disposition home or self-care (01) ==
LOC: WC 15:00
PROVIDERS: Visit Provider Physician Assistant
DX: T87.81 Dehiscence of amputation stump (principal); Z89.511 Acquired absence of right leg below knee; S88.111A Complete traumatic amputation at level between knee and ankle, right lower leg, initial encounter; E11.9 Type 2 diabetes mellitus without complications; E78.5 Hyperlipidemia, unspecified; I10 Essential (primary) hypertension; D84.9 Immunodeficiency, unspecified
CPT/HCPCS: 11042; 11045; 99213; G0463

== ENCOUNTER 2025-05-01 14:43 | Outpatient (RCR) | payer MEDICAID, SELFPAY ==
[2025-05-01 15:12] VITALS: BP 130/67; PULSE 92; RESP 16; TEMP 36.8
--- NOTE | 2025-05-01 17:22 | PCM.WC.PN ---
History of Present Illness Date of Service: 05/01/25 Chief Complaint: R BKA site wound History of Wound: Tri Brennan is a 49 y/o female who presents today for evaluation and management of a R BKA site wound. She has medical history significant for HTN, HLD, s/p renal transplant (x4, reportedly), CAD s/p PCI on prasugrel + ASA, diabetes. Her anti-rejection medications for her renal transplant include Cellcept, prednisone, and another infusion medication that she receives every 28 days. 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 She presented to the ER (seems all [facility] per referral documentation) with BKA site dehiscence on 02/03/25 after a fall onto her stump; she underwent operative debridement at that time followed by wound vac application. According to the patient, once she was home and C applying vac, it never maintained a good seal. She presented back to ER with BKA site infection 02/18/25 and underwent an additional debridement and was referred here for ongoing management at discharge on 02/25/25. She has been doing wet-to-dry dressings with saline since then. She is performing her own wound care, states she is managing this fine on her own. She reports she has a few days left on a course of Cipro + Linezolid, reports she had MRSA. She states that she does not have a stump protector. She states that she has a stump peanut salter. With her description, I cannot tell exactly what it is (knee immobilizer vs compression vs protector). Whatever she has, she got through Radiation Therapist. Subjective Subjective She has missed appointments the last few weeks due to transportation difficulties. She has continued to do well with wound care, appears to be adhering to our wound care instructions. She continues to note significant improvement in wound size. She has not had any increased erythema, swelling, drainage, foul odor, or pain around the wound. She denies constitutional symptoms. She never did complete the LLE venous duplex but her LLE edema has resolved; no concerns there at this time by her report. Objective Data Objective Data Vital Signs: Vital Signs Temp Pulse Resp BP O2 Del Method 98.3 F 92 16 130/67 H Room Air 05/01/25 15:12 05/01/25 15:12 05/01/25 15:12 05/01/25 15:12 05/01/25 15:12 Oxygen Delivery Method Room Air Charges/Coding Procedures Integumentary 111xxx-113xx: [id number] Ara subq tissue 20 sq cm/< Physical Exam Const alert, oriented x3, no apparent distress and average body habitus General Appearance: cooperative and comfortable HEENT normocephalic, head/scalp atraumatic, hearing grossly normal bilaterally and external ears normal Nose: external nose normal External Ear: external ears normal Teeth and Gingiva: poor dentition Eyes General Eye: normal appearance of both eyes Resp normal respiratory effort, normal air movement, no retractions and no use of accessory muscles Effort and Inspection: able to speak in complete sentences Extremity Extremity Narrative: RLE with BKA, wound as described below. LLE with TMA vs lisfranc amputation Bilat upper extremities with multiple partially amputated fingers bilaterally Skin Wounds: wounds noted Wound Narrative: R BKA stump dehiscence no to subcutaneous tissue depth. The wound base this week is pink with mild slough. There are no apparent tunnels. There is no significant drainage or foul odor. There is no surrounding erythema or excess warmth. It continues to decrease in size. Neuro oriented x3 and moves all extremities Speech: speech normal Psych cooperative Attitude: engaged Activity / Motor Behavior: appropriate eye contact Speech: normal speech Debridement Note Debridement Note Wound debrided: R BKA stump Laterality: Right Type of Debridement: Excisional debridement Anesthesia Used: 5% Lidocaine Gel Depth: in the subcutaneous layer Percentage of wound debrided: 100 Instrument Used: 7mm curette Tissue Removed: slough Severity: Fat Layer Exposed Amount of bleeding with debridement: Mild Bleeding Controlled with: Pressure Patient tolerated procedure: Patient tolerated procedure well Post-Debridement Measurements and Additional Note: Post-Debridement Measurements/Treatment - Nurse 1 - General Ulcer Assessment Start: 05/01/25 15:12 Freq: Status: Active Protocol: DORIS Activity Type Activity Date Activity User E-sign Co-sign Detail Recorded Client Recorded Date Recorded By Document 05/01/25 15:12 [facility] [id number] 05/01/25 15:22 [facility] 05/01/25 15:12 - Today's Visit Information Type of service Follow-up Visit (Physician/CLIENT MANAGER [employer] ) Arrival Mode Wheelchair Transfer Assistance None Patient Identification Verified (Name & Yes ) Patient Requires Transmission-Based No Precautions Vital Signs Temperature (97.8 F-99.1 F) 98.3 F Temperature Source Temporal Pulse Rate (60-100) 92 Pulse Location Monitor Respiratory Rate (12-18) 16 Respiratory rate source Observation Oxygen Delivery Method Room Air Blood Pressure (90/60-120/80) 130/67 H Blood Pressure Mean (mm Hg) 88 Source Monitor Position Sitting Blood Pressure Location Left Arm History Since Last Visit- (Skip if this is Patient's initial visit) Have you changed medications since your No last visit? Any new allergies or adverse reactions No Had a fall/change in ADL's that may No increase risk of falls Signs or symptoms of abuse and/or No neglect since last visit Have you been in the hospital since your No last visit? Has dressing in place as prescribed Yes Has compression in place as prescribed Yes Has offloadiing in place as prescribed N/A Experienced any changes in pain level or No management Other Footwear sock to left foot, latoya to r stump Pain Scale: 0-10 Numeric Is Patient Pain Free? Yes WC - Nurse 1 - General Ulcer Measurement Start: 05/01/25 15:12 Freq: Status: Active Protocol: Activity Type Activity Date Activity User E-sign Co-sign Detail Recorded Client Recorded Date Recorded By Document 05/01/25 15:12 [facility] [id number] 05/01/25 15:22 [facility] 05/01/25 15:12 Wound Center Nurse 1 #1 RT STUMP -Combined with other wound No -Current Size (cm) - Length 2.9 -Current Size (cm) - Width 6.4 -Current Size (cm) - Depth 0.1 -Total Square Cm 18.56 -Date of Last Picture (Recall this 05/01/25 field) -Photo Taken Yes -Tunneling No -Undermining/Tunneling No -Circular Undermining No -Exudate Amt Large -Exudate Type Serosanguineous -Wound Margin Flat & Intact -Granulation Amt Large (67-100%) -Granulation Quality Red -Slough/Fibrin Yes -Necrosis Amt Small (1-33%) -Necrotic Tissue Type Adherent Slough -Texture (Tabitha-wound Skin Appearance) Assessed -Moisture (Tabitha-wound Skin Appearance) Assessed -Color (Tabitha-wound Skin Appearance) Assessed -Temperature (Tabitha-wound Skin No Abnormality Appearance) (Pt Warm) -Tenderness on Palpation (Tabitha-wound No Skin Appearance) -Ulcer Cleansing Rinsed/ Irrigated with Saline -Foul Odor after Cleansing No -Anesthetic Used 4% Lidocaine Solution - Nurse 2 - General Ulcer CM Notes Start: 05/01/25 15:12 Freq: Status: Active Protocol: Activity Type Activity Date Activity User E-sign Co-sign Detail Recorded Client Recorded Date Recorded By Document 05/01/25 15:32 [id number] 05/01/25 15:36 05/01/25 15:32 Wound Center Nurse 2 -Time 15:32 -Correct Patient Yes -Correct Side, Site, Position Yes -Correct Procedure Yes -Procedure Performed Yes -Type of Procedure Debridement -Clinical Debridement Subcutaneous -Post Debridement (cm) - Length 3.0 -Post Debridement (cm) - Width 6.4 -Post Debridement (cm) - Depth 0.1 -Total Square (Post) (cm) 19.20 -Area of Debridement (cm) - Length 3.0 -Area of Debridement (cm) - Width 6.4 -Total Square (Area) (cm) 19.20 -Tunneling No -Undermining/Tunneling No -Circular Undermining No -Wound/Ulcer Outcome Not Healed -Ulcer Cleansing Rinsed/ Irrigated with Saline -Foul Odor after Cleansing No -Bioengineered Tissue No -Bleeding Controlled with Pressure -Offloading No -Debridement - Subq, 1st 20sq cm Yes Pain Scale: 0-10 Numeric Is Patient Pain Free? Yes - Nurse 3 - General Ulcer D/C NN Start: 05/01/25 15:12 Freq: Status: Active Protocol: Activity Type Activity Date Activity User E-sign Co-sign Detail Recorded Client Recorded Date Recorded By Document 05/01/25 15:48 [id number] 05/01/25 15:49 05/01/25 15:48 Wound Care Center Nurse 3 #1 RT STUMP -Primary Dressing Applied Hysept -Other Dressing dakins wet tot dry -Primary Dressing Covered/Secured with Dry Gauze & Roll Gauze, Secured with Tape -Hysept 1 RLE -Other stump peanut salter Pain Scale: 0-10 Numeric Is Patient Pain Free? Yes - Visit Discharge Discharge Condition Stable Ambulatory Status Wheelchair Transportation Private Auto Medication Reconcilliation completed & No provided to patient/care provider Clinical Summary of Care Provided Yes Assessment/Plan Assessment/Plan (1) Dehiscence of amputation stump: CODE(S): T87.81 - Dehiscence of amputation stump PLAN: Dehiscence of R BK amputation stump with associated wound (2) Below-knee amputation of right lower extremity: CODE(S): S88.111A - Complete traumatic amputation at level between knee and ankle, right lower leg, initial encounter (3) Diabetes: CODE(S): E11.9 - Type 2 diabetes mellitus without complications (4) Immunosuppressed status: CODE(S): D84.9 - Immunodeficiency, unspecified PLAN: Plan She has large open wound of the R BKA site secondary to dehiscence. There are no signs of infection on exam today. The wound has is now to the depth of the subcutaneous tissues, this is improved. The size also continues to improve significantly each visit. For wound care: (1) Wash the area with soap and water, pat to dry (2) Apply dakins-soaked gauze to the wound bed for wet-to-dry dressing (3) wrap with Kerlix (4) wrap with LATOYA for compression (5) change daily Will continue with LATOYA wrap for compression to the R BKA stump. Plan for return to the office in 2-3 weeks, sooner as needed.
--- NOTE | 2025-05-02 10:24 | WC ---
PHOTO 05/01/25 RIGHT STUMP
--- NOTE | 2025-05-08 08:56 | PCM.WC.PN ---
History of Present Illness Date of Service: 05/08/25 Chief Complaint: R BKA site wound History of Wound: Tri Brennan is a 49 y/o female who presents today for evaluation and management of a R BKA site wound. She has medical history significant for HTN, HLD, s/p renal transplant (x4, reportedly), CAD s/p PCI on prasugrel + ASA, diabetes. Her anti-rejection medications for her renal transplant include Cellcept, prednisone, and another infusion medication that she receives every 28 days. 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 She presented to the ER (seems all [facility] [place] per referral documentation) with BKA site dehiscence on 02/03/25 after a fall onto her stump; she underwent operative debridement at that time followed by wound vac application. According to the patient, once she was home and HHC applying vac, it never maintained a good seal. She presented back to ER with BKA site infection 02/18/25 and underwent an additional debridement and was referred here for ongoing management at discharge on 02/25/25. She has been doing wet-to-dry dressings with saline since then. She is performing her own wound care, states she is managing this fine on her own. She reports she has a few days left on a course of Cipro + Linezolid, reports she had MRSA. She states that she does not have a stump protector. She states that she has a stump draw end hand. With her description, I cannot tell exactly what it is (knee immobilizer vs compression vs protector). Whatever she has, she got through Housing Management Representative. Objective Data Objective Data Vital Signs: Vital Signs Temp Pulse Resp BP O2 Del Method 98.3 F 92 16 130/67 H Room Air 05/01/25 15:12 05/01/25 15:12 05/01/25 15:12 05/01/25 15:12 05/01/25 15:12 Oxygen Delivery Method Room Air Debridement Note Debridement Note Post-Debridement Measurements and Additional Note: Post-Debridement Measurements/Treatment RANDELL - Nurse 1 - General Ulcer Assessment Start: 05/01/25 15:12 Freq: Status: Active Protocol: DORIS Activity Type Activity Date Activity User E-sign Co-sign Detail Recorded Client Recorded Date Recorded By Document 05/01/25 15:12 [facility] [id number] 05/01/25 15:22 [facility] 05/01/25 15:12 WC - Today's Visit Information Type of service Follow-up Visit (Physician/LINK ASSEMBLER ) Arrival Mode Wheelchair Transfer Assistance None Patient Identification Verified (Name & Yes ) Patient Requires Transmission-Based No Precautions Vital Signs Temperature (97.8 F-99.1 F) 98.3 F Temperature Source Temporal Pulse Rate (60-100) 92 Pulse Location Monitor Respiratory Rate (12-18) 16 Respiratory rate source Observation Oxygen Delivery Method Room Air Blood Pressure (90/60-120/80) 130/67 H Blood Pressure Mean (mm Hg) 88 Source Monitor Position Sitting Blood Pressure Location Left Arm History Since Last Visit- (Skip if this is Patient's initial visit) Have you changed medications since your No last visit? Any new allergies or adverse reactions No Had a fall/change in ADL's that may No increase risk of falls Signs or symptoms of abuse and/or No neglect since last visit Have you been in the hospital since your No last visit? Has dressing in place as prescribed Yes Has compression in place as prescribed Yes Has offloadiing in place as prescribed N/A Experienced any changes in pain level or No management Other Footwear sock to left foot, kristi to r stump Pain Scale: 0-10 Numeric Is Patient Pain Free? Yes - Nurse 1 - General Ulcer Measurement Start: 05/01/25 15:12 Freq: Status: Active Protocol: Activity Type Activity Date Activity User E-sign Co-sign Detail Recorded Client Recorded Date Recorded By Document 05/01/25 15:12 [facility] [id number] 05/01/25 15:22 [facility] 05/01/25 15:12 Wound Center Nurse 1 #1 RT STUMP -Combined with other wound No -Current Size (cm) - Length 2.9 -Current Size (cm) - Width 6.4 -Current Size (cm) - Depth 0.1 -Total Square Cm 18.56 -Date of Last Picture (Recall this 05/01/25 field) -Photo Taken Yes -Tunneling No -Undermining/Tunneling No -Circular Undermining No -Exudate Amt Large -Exudate Type Serosanguineous -Wound Margin Flat & Intact -Granulation Amt Large (67-100%) -Granulation Quality Red -Slough/Fibrin Yes -Necrosis Amt Small (1-33%) -Necrotic Tissue Type Adherent Slough -Texture (Tabitha-wound Skin Appearance) Assessed -Moisture (Tabitha-wound Skin Appearance) Assessed -Color (Tabitha-wound Skin Appearance) Assessed -Temperature (Tabitha-wound Skin No Abnormality Appearance) (Pt Warm) -Tenderness on Palpation (Tabitha-wound No Skin Appearance) -Ulcer Cleansing Rinsed/ Irrigated with Saline -Foul Odor after Cleansing No -Anesthetic Used 4% Lidocaine Solution WC - Nurse 2 - General Ulcer CM Notes Start: 05/01/25 15:12 Freq: Status: Active Protocol: Activity Type Activity Date Activity User E-sign Co-sign Detail Recorded Client Recorded Date Recorded By Document 05/01/25 15:32 [id number] 05/01/25 15:36 05/01/25 15:32 Wound Center Nurse 2 -Time 15:32 -Correct Patient Yes -Correct Side, Site, Position Yes -Correct Procedure Yes -Procedure Performed Yes -Type of Procedure Debridement -Clinical Debridement Subcutaneous -Post Debridement (cm) - Length 3.0 -Post Debridement (cm) - Width 6.4 -Post Debridement (cm) - Depth 0.1 -Total Square (Post) (cm) 19.20 -Area of Debridement (cm) - Length 3.0 -Area of Debridement (cm) - Width 6.4 -Total Square (Area) (cm) 19.20 -Tunneling No -Undermining/Tunneling No -Circular Undermining No -Wound/Ulcer Outcome Not Healed -Ulcer Cleansing Rinsed/ Irrigated with Saline -Foul Odor after Cleansing No -Bioengineered Tissue No -Bleeding Controlled with Pressure -Offloading No -Debridement - Subq, 1st 20sq cm Yes Pain Scale: 0-10 Numeric Is Patient Pain Free? Yes - Nurse 3 - General Ulcer D/C NN Start: 05/01/25 15:12 Freq: Status: Active Protocol: Activity Type Activity Date Activity User E-sign Co-sign Detail Recorded Client Recorded Date Recorded By Document 05/01/25 15:48 [id number] 05/01/25 15:49 KW 05/01/25 15:48 Wound Care Center Nurse 3 #1 RT STUMP -Primary Dressing Applied Hysept -Other Dressing dakins wet tot dry -Primary Dressing Covered/Secured with Dry Gauze & Roll Gauze, Secured with Tape -Hysept 1 RLE -Other stump draw end hand Pain Scale: 0-10 Numeric Is Patient Pain Free? Yes WC - Visit Discharge Discharge Condition Stable Ambulatory Status Wheelchair Transportation Private Auto Medication Reconcilliation completed & No provided to patient/care provider Clinical Summary of Care Provided Yes
== END 2025-05-22 23:59 | disposition home or self-care (01) ==
LOC: WC 14:43
PROVIDERS: Visit Provider Physician Assistant
DX: T87.81 Dehiscence of amputation stump (principal); Z89.511 Acquired absence of right leg below knee; S88.111A Complete traumatic amputation at level between knee and ankle, right lower leg, initial encounter; E11.9 Type 2 diabetes mellitus without complications; I10 Essential (primary) hypertension; E78.5 Hyperlipidemia, unspecified; D84.9 Immunodeficiency, unspecified; I25.10 Atherosclerotic heart disease of native coronary artery without angina pectoris; Z94.0 Kidney transplant status
CPT/HCPCS: 11042